=== PATIENT | male | born 1990 | race Two or more races ===

== ENCOUNTER 2018-03-19 16:29 | Emergency (ER) | payer OTHER ==
--- NOTE | 2018-03-19 17:15 | EDPHY ---
H & P Smoking Status: Never smoked Time Seen by Provider: 03/19/18 17:14 HPI/ROS: CHIEF COMPLAINT: Right-sided facial numbness and weakness HISTORY OF PRESENT ILLNESS: Patient is a 28-year-old male with no significant past medical history presents wit right-sided facial weakness and numbness since waking Friday morning. This was 3 days ago. Denies any trauma to the face or any headache. Denies any arm weakness, trouble finding his words, dizziness, fever, confusion REVIEW OF SYSTEMS: Constitutional: No fever, no chills. Eyes: No discharge. ENT: No sore throat. Cardiovascular: No chest pain, no palpitations. Respiratory: No cough, no shortness of breath. Gastrointestinal: No abdominal pain, no vomiting. Genitourinary: No hematuria. Musculoskeletal: No back pain. Skin: No rashes. Neurological: No headache. (Ace Diane) Physical Exam: General Appearance: Alert and no distress. ENT: normal dentition. No tonsillar exudate or swelling. Eyes: Pupils equal and round no injection. Respiratory: Chest is nontender, lungs are clear to auscultation. Cardiac: regular rate and rhythm. No lower extremity edema Gastrointestinal: Abdomen is soft and nontender, no masses, bowel sounds normal. Musculoskeletal: Neck is supple and nontender. Extremities have full range of motion and are nontender without deformity Skin: No rashes or lesions. Neuro: Cranial nerves grossly intact. No nystagmus. Normal [id number] testing. No ulnar drift. Equal grasp bilateral hands. Ambulatory. 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 Though he did not have complete sparing of forehead MRI showed no signs of ischemia and his at 3 days of symptoms. He was started on prednisone 60 mg for 1 week in addition to valacyclovir 1000 mg three times daily. He is provided with the contact information for 2 different primary care physicians who agrees to follow up with in the next few days. (Ace Diane) I did not see or evaluate this patient while he was in the ER. (Alvarez Guerra) Differential Diagnosis: Facial trauma, meningitis, CVA, facial cellulitis, orbital cellulitis (Ace Diane) - Data Points Laboratory Results: Laboratory Results 03/19/18 17:20 03/19/18 17:20 Medications Given: Discontinued Medications Prednisone (Prednisone) 60 mg PO ONCE ONE Stop: 03/19/18 18:11 Last Admin: 03/19/18 18:35 Dose: 60 mg Valacyclovir HCl (Valtrex) 1,000 mg PO EDNOW ONE Stop: 03/19/18 18:11 Last Admin: 03/19/18 18:34 Dose: 1,000 mg Departure - Departure Disposition: Home, Routine, Self-Care Clinical Impression: Palsy, Vinson's Condition: Good Instructions: Vinson Palsy (ED) Additional Instructions: Please call either [facility] or the other doctor of provided the number of tomorrow morning to schedule appointment to be re-evaluated early next week. He have any worsening symptoms please return to the emergency room. Take the entire course of prednisone and valacyclovir as prescribed. Referrals: NONE *PRIMARY CARE P,. [Primary Care Provider] - As per Instructions Hugo Wallace DO [Doctor of Osteopathy] - As per Instructions [facility],. [Clinic] - As per Instructions Prescriptions: predniSONE 60 mg PO DAILY 6 Days #18 tab Valacyclovir HCl [Valtrex] 1,000 mg PO TID #30 tab
[2018-03-19 17:36] LABS: PLATELET COUNT 366 10^3/uL (150-400)
[2018-03-19] MEDS ORDERED: valACYclovir 500 MG TAB PO ONE (18:10)
[2018-03-19] MEDS ORDERED: predniSONE 20 MG TAB PO ONE (18:10)
[2018-03-19 18:56] VITALS: BP 132/70
== END 2018-03-19 18:56 | disposition home or self-care (01) ==
DX: G51.0 Bell's palsy (principal)
CPT/HCPCS: J7512

== ENCOUNTER 2018-09-05 14:10 | Emergency (ER) | payer OTHER ==
[2018-09-05 14:13] VITALS: BP 150/92
--- NOTE | 2018-09-05 14:24 | EDPHY ---
H & P Time Seen by Provider: 09/05/18 14:13 HPI/ROS: CHIEF COMPLAINT: Itching multiple body areas HISTORY OF PRESENT ILLNESS: 28-year-old immunocompetent male complaining of highly pruritic skin lesions for the past 1 week, worse at night. No involvement genitalia. No intraoral lesions. No new medications. No methamphetamine use. Note pain. PRIMARY CARE PROVIDER: REVIEW OF SYSTEMS: 10 systems reviewed and are negative with exception of illness mentioned in the history of present illness PHYSICAL EXAM (Prior to examination, patient consented to physical exam, hands were washed and my usual and customary physical exam procedures followed) 1) GENERAL: Well-developed, well-nourished, alert and oriented. Appears to be in no acute distress. 2) HEAD: Normocephalic 3) HEENT: sclera anicteric 4) LUNGS: Breathing comfortably. 5) SKIN: Patient's arms legs and trunk is multiple discrete Ayo like lesions which have been excoriated with no erythema no pain no evidence of cellulitis. Soft compartments throughout Smoking Status: Heavy smoker Constitutional: Initial Vital Signs Temperature (C) 36.6 C 09/05/18 14:12 Heart Rate 93 09/05/18 14:12 Respiratory Rate 18 09/05/18 14:12 Blood Pressure 150/92 H 09/05/18 14:12 O2 Sat (%) 97 09/05/18 14:12 O2 Delivery Mode Room Air Allergies/Adverse Reactions: No Known Allergies Allergy (Unverified 09/05/18 14:13) Home Medications: Medication Instructions Recorded Valacyclovir HCl [Valtrex] 1,000 mg PO TID #30 tab 03/19/18 predniSONE 60 mg PO DAILY 6 Days #18 tab 03/19/18 Permethrin 5% [Elimite 5%] 60 chrissie TP ONCE #1 cream 09/05/18 MDM/Departure - MDM ED Course/Re-evaluation: Patient skin lesions are consistent with scabies. He has been prescribed permethrin we discussed washing clothing bedding and similar. He has been given refill should he need 2nd treatment. Given follow-up information. He has no evidence of super infection. Care of patient under supervision of secondary supervising physician Dr Rodriguez . - Depart Disposition: Home, Routine, Self-Care Clinical Impression: Scabies Condition: Good Instructions: Scabies (ED) Additional Instructions: Wash all clothing, towels, bedding in hot water. Try not to itch or excoriate the area. Prescriptions: Permethrin 5% [Elimite 5%] 60 chrissie TP ONCE #1 cream Referrals: [facility],. [Clinic] - 2-3 days, call for appt.
== END 2018-09-05 14:31 | disposition home or self-care (01) ==
DX: B86 Scabies (principal); F17.200 Nicotine dependence, unspecified, uncomplicated